=== PATIENT | female | born 2000 | race Caucasian/White ===

== ENCOUNTER 2021-12-17 09:13 | Emergency (ER) | payer BC ==
[2021-12-17] MEDS ORDERED: Ketorolac 30 MG/ML SDV IM ONE (09:46)
[2021-12-17 11:41] VITALS: BP 108/72; PULSE 83
== END 2021-12-17 11:11 | disposition home or self-care (01) ==
LOC: MW.ED 09:13
DX: M25.571 Pain in right ankle and joints of right foot (principal); M25.572 Pain in left ankle and joints of left foot; Z88.5 Allergy status to narcotic agent; Z88.8 Allergy status to other drugs, medicaments and biological substances
CPT/HCPCS: 73610; 96372; 99283; J1885